=== PATIENT | male | born 1950 | race Caucasian/White ===

== ENCOUNTER 2017-02-19 05:44 | Day surgery (SDC) | payer MEDICARE, OTHER ==
[2017-02-19] VITALS (13 sets, daily range): BP systolic 107–165; BP diastolic 67–94; PULSE 55–73; RESP 8–17; O2SAT 93–100
[~2017-02-19] VITALS: Ht 188 cm; Wt 89.5 kg
[~2017-02-19 05:44] MED LIST: ASCO100089 PO; CHOL200047 PO; DESO15CR25 TOP; GLUC-104 PO; HYDR-656 PO; KETOCONAZOLE 2% TP; Lactated Ringer's 1,000 ML IV ONE; METO25TA99 PO; MULT-1018 PO; OMEG-38 PO; UBID100T7 PO; VITA100T4 PO
[2017-02-19] MEDS ORDERED: HYDROmorphone 2 mg/mL Inj ONE (05:45)
[2017-02-19] MEDS ORDERED: Ondansetron 2 mg/mL 2 mL Inj ONE (05:45)
[2017-02-19] MEDS ORDERED: Propofol 10,000 mCg/mL 20 mL Inj ONE (05:45)
[2017-02-19] MEDS ORDERED: Phenylephrine/NS 100 mCg/mL 10 mL Syringe IVPUSH ONE (05:45)
[2017-02-19] MEDS ORDERED: Ketamine 10 mg/mL 20 mL Inj ONE (05:45)
[2017-02-19] MEDS ORDERED: Heparin 5,000 Unit/mL Inj ONE (05:45)
[2017-02-19] MEDS ORDERED: Dexamethasone 4 mg/mL Inj ONE (05:45)
[2017-02-19] MEDS ORDERED: Rocuronium 10 mg/mL 5 mL Inj ONE (05:45)
[2017-02-19] MEDS ORDERED: fentaNYL-PF 50 mCg/mL 2 mL Inj ONE (05:45)
[2017-02-19] MEDS ORDERED: Heparin 5,000 Unit/mL Inj SUBQ ONE ×2 (06:00→07:38)
[2017-02-19] MEDS ORDERED: LACT1CAP73 PO (06:34)
--- NOTE | 2017-02-19 07:20 | PCM.HPANE ---
Patient Data Date of Service: Feb 19, 2017 Surgeon Admitting Provider: Attending Provider:Holger Chavez MD Primary Care Physician:Brendon Landon MD Other Provider:Jaspreet Mandujano Anesthesia Reason for Visit Chronic Cholecystitis Ht/WT & BMI Height (Feet): 6 Height (Inches): 2 Weight (Kilograms): 89.5 Body Mass Index 25.00 Allergies Coded Allergies: No Known Allergies (Verified , 02/15/17) Past Anesthesia History Anesthesia History: Denies:: Abnormal Airway, Anesthesia Reactions, Difficult Intubation, Fam Anesthesia Reaction, Fam Malignant Hypertherm, Malignant Hyperthermia Diabetes History Hx Diabetes?: No Current Bedside Blood Glucose: 92 MRSA MRSA: No Medications Home Meds Incl Beta Juan: Yes Date Beta Juan Taken: Feb 18, 2017 Time Beta Juan Taken: 1999 Reported Medications Lactobacillus Combo No.11 (Probiotic)1 Each Cap.sprink1 Each PO DAILY 02/19/17 Multivitamin (Multi Vitamin Daily)1 Each Tablet1 Each PO DAILY 30 Days Ref 0 02/15/17 [ketaconazole 2% cr] No Conflict Check1 Applic TP BID 02/15/17 [place]-3/Dha/Epa/Fish Oil (Fish Oil 1,000 mg Softgel)1 Each Capsule1 Each PO DAILY 02/15/17 Desonide (Desonide Cream)15 Gm Cream..g.1 Applic TOP BID #1 TUBE Ref 0 0.05% 02/15/17 Vitamin B Complex 100 No.2 (B-100 Complex)100 Mg Tablet.er100 Mg PO DAILYWD 09/08/16 hydrOXYzine Hcl (HydrOXYzine Hcl)25 Mg Slecbx09-01 Mg PO HS PRN For Insomnia 09/04/16 Metoprolol Succinate ER 25 Mg Tab.er.24h25 Mg PO DAILY Ref 0 09/04/16 Cholecalciferol (Vitamin D3) (Vitamin D3)2,000 Unit Capsule2,000 Unit PO DAILY 09/04/16 Ascorbic Acid (Vitamin C)1,000 Mg Tab.chew1,000 Mg PO DAILY #30 TABLET Ref 0 07/06/14 Ubidecarenone (Coenzyme Q10)100 Mg Fpfiqx686 Mg PO DAILY 07/06/14 Discontinued Reported Medications Glucosa Blake 2Kcl/Chondroitin Blake (Glucosamine Chondroitin Caplet)1 Each Tablet2 Each PO DAILY 02/15/17 Clindamycin 300 Mg Ksbnvxs964 Mg PO QID Ref 0 09/08/16 Mecobalamin (B-12)1,000 Mcg Tab.rapdis1,000 Mcg SL 09/08/16 [place]-3 Fatty Acids/Fish Oil (Fish Oil 1,000 mg Capsule)1 Each Capsule1 Each PO DAILY 07/06/14 Multivitamin (Daily Vitamin)1 Each Tablet1 Each PO DAILY 07/06/14 Discontinued Scripts Gabapentin 300 Mg Cchtcxe823 Mg PO TID #30 CAPSULE Ref 0 Prov:Niles Reynoso MD 09/08/16 History History of ENT Problems?: Yes HEENT History: Denies:: Abnormal Airway Difficult Intubation Hearing Problem Denture Type: None Teeth Condition: Within Normal Limits Other HEENT Pertinent History: S/P TONSILLECTOMY Hx of Heart Problems?: Yes Cardiovascular History: Positive for:: 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)) Chest Pain Hypertension (hyperlipidemia) Denies:: AICD Congestive Heart Failure Heart Murmur (ECHO 06/2014 EF 55-60%) Pacemaker Valvular Heart Disease Hx of Respiratory Problem?: Yes Respiratory History: Positive for:: Use of C-PAP Machine (ALINE+ USES MOUTHPIECE SLEEP STUDY 03/2009) Denies:: Asthma COPD Chest Surgery Dyspnea Emphysema Hemoptysis Pneumonia Tuberculosis Hx Neurologic Problems?: Yes Neurological History: Denies:: CVA Other Neurological Pertinent: C/OF NEUROPATHY Hx of GI Problems?: Yes Other GI Pertinent History: S/P LT INGUINAL HERNIA RPR Hx of Problems?: Yes Genitourinary History: Positive for:: Urinary Tract Infection (patient states "close to 20 years ago") Denies:: HX of Hemodialysis Kidney Stones HX of Peritoneal Dialysis: No Other Pertinent History: C/OF LUTS Male Hx: Positive for:: Prostate Problems (BPH W/ LUTS; HX CHRONIC PROSTATITIS ) Denies:: Scrotal Mass Testicular Surgery Skin History: Denies:: History Skin Disorders? Pressure Ulcers Hx Musculoskeletal Problems?: Yes Musculoskeletal History: Positive for:: Back Injury (chronic lower back pain/ SCOLIOSIS) Musculoskeletal Trauma (HX OF FX LEG IN CHILDHOOD) Osteoarthritis Denies:: Joint Replacement Hx of Psycho/Social Problems?: No Hx Surgeries?: Yes (back, hernia, tonsils, leg fracture?) Hx Any Other Health Problems?: Yes Other History: Denies:: Cancer Endocrine Disease Hospitalization Thyroid Disease History Blood Transfusions: Denies:: Blood Transfuse Reaction Blood Transfusions Hx Diabetes: NoBedside Blood Glucose: 92 Hx Alcohol Use: Yes (OCCASIONAL)Hx Substance Use: No Smoking Status: Never Smoker Have You Smoked inLast 12 mo: No Stop/Bang S-Snoring: Do You Snore Loudly: No T-Tired: feel tired, fatigued: Yes O-Obsered: Observed not breath: Yes P-Blood Pressure: treated: Yes B- Body Mass Index > 35 kg/m2: No A- Age over 50: Yes N- Neck Large Circumference: No G- Gender Male: Yes ALINE Total Score: 5 Risk Assessment Category Category 1A: Patient has history of documented sleep apnea, and HAS NOT received any narcotic, sedative or anesthesia administration during this stay. Category 1B: Patient has history of documented sleep apnea, and HAS received any narcotic , sedative or anesthesia administration during this stay Category 2: Patient has SUSPECTED Obstructive Sleep Apnea, and HAS received any narcotic , sedative or anesthesia administration during this stay. Category 3: Patient has SUSPECTED Obstructive Sleep Apnea and HAS NOT received narcotic, sedative or anesthesia administration during this stay. Category 4: Outpatient in Procedural Areas with known sleep apnea or who screen positive for High Risk via the STOP/BANG questionnaire. Exam Exam Vital Signs Vital Signs Date Time Temp Pulse Resp B/P Pulse Ox O2 Delivery O2 Flow Rate FiO2 02/19/17 06:29 36.2 63 17 134/86 96 Room Air General Appearance: Alert, Oriented X3 HEENT/AIRWAY: MP 2 Lungs: Clear to Auscultation Heart: Regular Rate/Rhythm Meds/Labs/Diagnostics Admission Meds Current Medications Lactated Ringer's (Lr) 1,000 ml @ 120 mls/hr Q8H20M ONCE IV Last administered on 02/19/17 06:28; Start 02/19/17 at 05:00; Stop 02/19/17 at 13:19 Gabapentin (Neurontin) 600 mg PREOP ONCE PO Last administered on 02/19/17 06: 31; Start 02/19/17 at 06:00; Stop 02/19/17 at 06:01; Status DC Celecoxib (CeleBREX) 200 mg PREOP ONCE PO Last administered on 02/19/17 06:31 ; Start 02/19/17 at 06:00; Stop 02/19/17 at 06:01; Status DC Acetaminophen (Tylenol) 650 mg PREOP ONCE PO Last administered on 02/19/17t 06 :31; Start 02/19/17 at 06:00; Stop 02/19/17 at 06:01; Status DC Bedside Blood Glucose: 92 Plan Impression Patient chart reviewed, patient interviewed and anesthestic plan with risks, benefits, and alternatives discussed, and informed consent obtained. ASA Physical Status: ASA2 Mod Systemic Disease Anesthetic Plan: GA Bene/Risks/Altern/Consents: Yes HP Complete Prior to Induction: Yes Aaron Soto MD Feb 19, 2017 07:20
[2017-02-19] MEDS ORDERED: Bupivacaine-MPF 0.5% 30 mL Inj INJ ONE (07:57)
[2017-02-19] MEDS ORDERED: Lactated Ringer's 1,000 ML IV SCH (08:08)
[2017-02-19] MEDS ORDERED: Lactated Ringer's 500 ML IV PRN (08:08)
[2017-02-19] MEDS ORDERED: MetoCLOpramide 5 mg/mL 2 mL Inj IVPUSH PRN (08:10)
[2017-02-19] MEDS ORDERED: Atropine 0.4 mg/mL Inj IVPUSH PRN (08:10)
[2017-02-19] MEDS ORDERED: fentaNYL-PF 50 mCg/mL 2 mL Inj IVPUSH PRN (08:10)
[2017-02-19] MEDS ORDERED: Ondansetron 2 mg/mL 2 mL Inj IVPUSH PRN (08:10)
[2017-02-19] MEDS ORDERED: Labetalol 5 mg/mL 4 mL Inj IV PRN (08:10)
[2017-02-19] MEDS ORDERED: EPHEDrine Sulfate 50 mg/mL Inj IVPUSH PRN (08:10)
[2017-02-19] MEDS ORDERED: Phenylephrine 10,000 mCg/mL Inj IVPUSH PRN (08:10)
[2017-02-19] MEDS ORDERED: HYDROcodone-APAP 5-325 mg Tablet PO PRN (08:40)
--- NOTE | 2017-02-19 09:13 | OP ---
[address] [address] OPERATIVE REPORT PATIENT: TWIN TOLEDO : 1950 MR#: [id number] ADMIT: 02/19/2017 JOB ID: [id number] DATE OF SURGERY: 02/19/2017 PREOPERATIVE DIAGNOSIS(ES): 1. Chronic calculous cholecystitis. 2. Incarcerated umbilical hernia. POSTOPERATIVE DIAGNOSIS(ES): 1. Chronic calculous cholecystitis. 2. Incarcerated umbilical hernia. PROCEDURE: 1. Laparoscopic cholecystectomy. 2. Repair of incarcerated umbilical hernia. SURGEON: Holger Chavez MD NEWSPAPER CARRIER: Kee Cordero PA-C INDICATIONS: A 66-year-old man with intermittent epigastric and right upper quadrant pain for years. It occurs 35-40 minutes after eating. He has known gallstones by an ultrasound, but also has an abnormal HIDA scan showing a reduced ejection fraction of 15.4%. After discussing options with the patient, he has elected to proceed with a laparoscopic cholecystectomy and cholangiograms. He also had an incarcerated umbilical hernia. FINDINGS: He had an incarcerated umbilical hernia containing preperitoneal fat. He had chronic calculous cholecystitis. Attempts at cholangiograms were unsuccessful due to inability to keep the catheter in the cystic duct due to a short length before hitting a cystic duct valve. The triangle of Calot was completely dissected prior to dividing any tubular structures. DESCRIPTION OF PROCEDURE: At the beginning and end of the operation, SCOAP checklist was completed. A general endotracheal anesthetic was induced and using ChloraPrep, he was prepped and draped in the usual fashion. He had on pneumatic hose. He received antibiotics. The trocar sites were infiltrated with 0.5% bupivacaine. An infraumbilical incision was made. The umbilical hernia sac was identified and opened, and the abdominal cavity was entered. The fascial defect was opened inferiorly to allow placement of the trocar. He was placed in the reverse Trendelenburg position, rotated to the left, and additional 5 mm trocars were placed under direct visualization, one in the upper midline and two in the right upper quadrant. There were adhesions between the omentum and gallbladder, and they were taken down as the gallbladder was elevated by grasping the fundus. The infundibulum was then exposed and retracted inferiorly and laterally, and using blunt dissection then with cautery, the origin of the cystic duct was identified as was the cystic duct and the triangle of Calot was dissected. A clip was placed at the origin of the cystic duct and gallbladder. A small incision was made in the duct. There were no stones within the duct, but attempts to position and keep the catheter within the duct proved fruitless because it kept falling out to due to coming up against a cystic duct valve. Two clips were then placed proximally in the cystic duct and it was divided. The cystic artery was divided between two clips proximally and one distally. The gallbladder was dissected off of the liver using cautery and placed into a specimen bag. The subhepatic space was irrigated with saline, as was the subphrenic space. There was no evidence of bile leak or bleeding. The specimen was removed through the umbilical port. Trocars were removed without evidence of bleeding. Further dissection then completely exposed the umbilical hernia, and the umbilical skin was mobilized off the fascia. The fascia was then closed with running 0-Vicryl. The umbilical skin was sutured down to the fascia with 4-0 Vicryl. The skin incisions were closed with subcuticular 4-0 Vicryl. Steri-Strips and Band-Aids were applied. The estimated blood loss was 15 cc. No apparent complications. The final sponge, needle, and instrument counts were announced as correct. The patient was returned to the recovery room in stable condition. Critical Assistance provided by JANELLE Schneider
[2017-02-19] MEDS: HYDROmorphone 1 mg/mL Inj IVPUSH PRN ×2 (09:20→09:30)
--- NOTE | 2017-02-19 09:25 | PCM.ANEP1 ---
Post Anesthesia PACU Phase 1 Assessment Date of Service: Feb 19, 2017 Vital Signs Vital Signs Date Time Temp Pulse Resp B/P Pulse Ox O2 Delivery O2 Flow Rate FiO2 02/19/17 09:15 72 13 143/91 96 Nasal Cannula 4 02/19/17 09:10 37.0 64 16 145/89 98 Simple Mask 8 02/19/17 09:05 63 17 150/91 98 Simple Mask 8 02/19/17 09:00 66 9 160/87 98 Simple Mask 8 02/19/17 08:55 67 11 154/90 98 Simple Mask 8 02/19/17 08:51 36.3 65 11 165/94 98 Simple Mask 8 02/19/17 06:29 36.2 63 17 134/86 96 Room Air Anesthetic Administered: GA Level of Alertness: Awake, talking PHOENIX's with Equal Strength: Yes Pain: Yes Nausea or Vomiting: No CV Function & Hydration Stable: No Airway Device: Oralpharangeal Airway Oxygen Delivery: Simple Mask Lungs: Clear to Auscultation PACU Phase 2 Assessment Complications: No Patient Instructions Provided: N/A Aaron Soto MD Feb 19, 2017 09:25
[2017-02-19] MEDS ORDERED: HYDROmorphone 0.5 mg/0.5 mL iSecure Syringe ONE (10:30)
--- NOTE | 2017-02-20 15:26 | PATH ---
SURGICAL PATHOLOGY Attending Physician:Erick Zavala CASE STATUS: Signed Out PATIENT NAME: TWIN TOLEDO PID: [id number] : 1950 DATE COLLECTED:02/19/2017 15:16 SPECIMEN: Gallbladder CLINICAL HISTORY: CHRONIC CHOLECYSTITIS 1. GALLBLADDER FINAL DIAGNOSIS: 1.GALLBLADDER: CHOLELITHIASIS WITH ASSOCIATED MILD CHRONIC CHOLECYSTITIS. ICD10 K80.66 GROSS DESCRIPTION: Received in formalin, labeled with the patient' s name and "gallbladder", is one gallbladder measuring 8.0 x 2.5 x 2.0 cm. The serosal surface is smooth and glistening. Jeffrey are located at the cystic duct region. Further sectioning reveals the wall to measure up to 0.3 cm in thickness. Within the cavity are found multiple black stones ranging in size from 0.2 x 0.2 x 0.2 cm to 0.4 x 0.3 x 0.3 cm. The stones are easily crushed. The mucosal surface is dark green and velvety. Ticket Collector sections are submitted in cassette 1A. ([id number]) MICRO DESCRIPTION: See diagnosis. ICD-9 CODES: CPT CODES: 1: 88381 Electronically Signed Out Niles Sexton MD [facility] Pathology [facility] [address] [place] [address] Technical component performed at [facility], [facility] [address], [place], [address]
== END 2017-02-19 23:59 | disposition home or self-care (01) ==
LOC: SAS 05:44
PROVIDERS: ATTEND Surgery
DX: K80.10 Calculus of gallbladder with chronic cholecystitis without obstruction (principal); K42.0 Umbilical hernia with obstruction, without gangrene; E78.5 Hyperlipidemia, unspecified; G47.00 Insomnia, unspecified; N41.1 Chronic prostatitis; K21.9 Gastro-esophageal reflux disease without esophagitis; K76.0 Fatty (change of) liver, not elsewhere classified; M41.9 Scoliosis, unspecified; G47.30 Sleep apnea, unspecified; I71.4 Abdominal aortic aneurysm, without rupture; N40.1 Benign prostatic hyperplasia with lower urinary tract symptoms; Z79.82 Long term (current) use of aspirin
CPT/HCPCS: 47562; 49587; J0690; J1100; J1170; J1644; J1885; J2250; J2370; J2405; J3010; J7120

== ENCOUNTER 2017-03-23 10:48 | Emergency (ER) | payer MEDICARE, OTHER ==
[~2017-03-23] VITALS: Ht 188 cm; Wt 90.9 kg
[~2017-03-23 10:48] MED LIST changes: -GLUC-104 PO; +LACT1CAP73 PO; -Lactated Ringer's 1,000 ML IV ONE
[2017-03-23 10:52] VITALS: BP 147/86; PULSE 57; RESP 12; O2SAT 97
--- NOTE | 2017-03-23 11:11 | ED.REPORT ---
HPI-General Illness Date of Service Mar 23, 2017 ED Provider: Nicanor Bello Patient is a 66 year old male with a hx of AAA, HTN, pre-diabetes, and chronic low back pain who presents to the ED complaining of extremity numbness a few weeks ago. He describes the sensation as numbness, aching, and tingling. His numbness started with his legs and feet bilaterally but L>R. His symptoms have progressively gotten worse and for the past few days his arms and fingers have been heavy and numb. Associated symptoms include chills. He denies incontinence , fevers, sweats, vomiting, diarrhea, trouble walking, or any other symptoms. He reports trouble unscrewing things. He has an appointment with his PCP in 6 days. He had his gallbladder removed 4 weeks ago. Nursing Notes Stated Complaint: TINGLING/NUMBNESS IN LEGS, ARMS AND FEET Chief Complaint: Neuro Symptoms/ Deficits Nursing Notes Reviewed: Yes Allergies: Coded Allergies: No Known Allergies (Verified , 02/15/17) Scheduled ([ketaconazole 2% cr]) 1 APPLIC TP BID Ascorbic Acid (Vitamin C) 1,000 Mg Tab.chew 1,000 MG PO DAILY Cholecalciferol (Vitamin D3) (Vitamin D3) 2,000 Unit Capsule 2,000 UNIT PO DAILY Desonide (Desonide Cream) 15 Gm Cream..g. 1 APPLIC TOP BID 0.05% Lactobacillus Combo No.11 (Probiotic) 1 Each Cap.sprink 1 EACH PO DAILY Metoprolol Succinate ER (Metoprolol Succinate ER) 25 Mg Tab.er.24h 25 MG PO DAILY Multivitamin (Multi Vitamin Daily) 1 Each Tablet 1 EACH PO DAILY [place]-3/Dha/Epa/Fish Oil (Fish Oil 1,000 mg Softgel) 1 Each Capsule 1 EACH PO DAILY Ubidecarenone (Coenzyme Q10) 100 Mg Tablet 200 MG PO DAILY Vitamin B Complex 100 No.2 (B-100 Complex) 100 Mg Tablet.er 100 MG PO DAILYWD Scheduled PRN hydrOXYzine Hcl (HydrOXYzine Hcl) 25 Mg Tablet 25-50 MG PO HS PRN PRN For Insomnia General Time Seen by MD: 11:10 Chief Complaint Other (Numbness ) Hx Obtained From: Patient Arrived By: Walk-in Onset Occurred: 1 week ago Symptom Duration: Since onset Past Medical History Past Medical History Obstructive sleep apnea Enlarged ascending aorta diverticulitis arthritis Chronic low back pain Pre-diabetes Reports: Cancer, Hyperlipidemia, Hypertension Past Surgical History Hernia Leg fracture Reports: Cholecystectomy, Tonsillectomy Reports: Back/neck surgery Family History Reports: Coronary artery disease, Diabetes mellitus, Stroke Smoking History Never Smoker Social History Alcohol Use: 1-3 per day Ambulatory Status Independent Review of Systems +tingling Full Review of Systems Constitutional: Reports: Chills, Denies: Fever GI: Denies: Diarrhea, Vomiting Male: Denies Incontinence Musculoskeletal: Reports: Extremity pain Skin: Denies Diaphoresis Neurologic: Reports: Numbness, Denies: Bladder dysfunction, Bowel dysfunction, Problem walking Complete sys rev & neg: except as marked. Physical Exam Vital Signs Vital Signs Date Time Temp Pulse Resp B/P Pulse Ox O2 Delivery O2 Flow Rate FiO2 03/23/17 12:06 52 16 131/79 96 Room Air 03/23/17 10:52 36.6 57 12 147/86 97 Room Air Initial VS: Reviewed Head / Eyes: Atraumatic, Normocephalic Neck: Full range of motion Skin: Warm, Dry Neurologic: Alert, Oriented, Nonfocal Psychiatric: Mood/affect normal, Behavior normal, Normal thought content General/Constitutional: Awake, Alert, No acute distress Respiratory / Chest: Breath sounds NL, Breath sounds = bilat, No respiratory distress Cardiovascular: Heart rate NL, Regular rhythm, Heart sounds NL, Peripheral circulation NL, Pulses = bilaterally Abdomen: Atraumatic, Soft, Non-tender Upper Extremities Upper Extremity / MS: Atraumatic, Tendon function NL Lower Extremity / Pelvis / MS: Atraumatic, Tendon function NL Neurologic: Oriented X3, Speech NL, No motor deficits Subjective sensory deficits in extremities Strength 5/5 in all 4 extremities. Re-Eval/Medical Decision Time of Eval: 11:57 Re-Evaluation/Progress Note: Discussed plan for discharge. Patient understands and agrees with plan. All questions addressed at this time. Counseled Regarding: Diagnosis, Need for follow-up, When/why to return to ED Discharge & Departure Primary Impression: Neuropathy Disposition: Home Discharge Condition All VS Reviewed: Yes Condition: Stable Patient Instructions: Peripheral Neuropathy (ED) Additional Instructions: You have some sort of peripheral neuropathy. The cause of this is not yet known. I recommend follow-up with as planned this . Evaluation may include rheumatology, neurology or some other advanced imaging or serologic testing. I see no evidence today of acute stroke, infection or dangerous neurologic impairment. Follow up right away for significant weakness or dysfunction in any other way. Use Tylenol 1000 mg every 6 hours as needed for pain or naproxen 500 mg every 12 hours as needed for pain. Referrals: Brendon Landon MD (PCP) Scribe Attestation Portions of this note were transcribed by Ban Samuels. I, Dr. Bello personally performed the history, physical exam and medical decision-making; I reviewed and confirmed the accuracy of the information in the transcribed note. Signed by: Ban Samuels 03/23/2017, [id number] copies to: Brendon Landon MD, Kirk H MD Mar 23, 2017 11:11 BAN SAMUELS Mar 23, 2017 11:24
[2017-03-23 12:06] VITALS: BP 131/79; PULSE 52; RESP 16; O2SAT 96
== END 2017-03-23 12:08 | disposition home or self-care (01) ==
LOC: SED 10:48
DX: G62.9 Polyneuropathy, unspecified (principal); I10 Essential (primary) hypertension; E78.5 Hyperlipidemia, unspecified; R73.03 Prediabetes